=== PATIENT | male | born 2000 | race Caucasian/White ===

== ENCOUNTER 2024-03-22 11:53 | Emergency (ER) | payer BC, SELFPAY ==
[2024-03-22 12:20] VITALS: BP 147/127
--- NOTE | 2024-03-22 13:02 | ED.GENMED ---
History of Present Illness
General
Chief Complaint: Abdominal Symptoms
Time Seen by Provider: 03/22/24 12:35
Travel History
Have you had any contact with someone who has COVID-19?: No
Do you have any symptoms of coronavirus? Fever > 100 degrees, chills, cough, shortness of breath, sore throat, loss of taste or smell, muscle aches, or headache?: No
History of Present Illness
History of Present Illness:
23-year-old male no past medical history presenting with multiple episodes of nausea, vomiting, diarrhea starting around 5 AM this morning. Patient estimates that he has vomited 50-60 times today. Patient reports epigastric pain that radiates up
into his chest. Patient states that symptoms started after he had a chicken sandwich last night. Patient states that for the people had same chicken sandwich with no symptoms. Patient denies fever, chills, or urinary symptoms. Patient states
that he drink 8 beers 2 nights ago and 1 beer yesterday.
Phy Exam
Physical Exam
Physical Exam:
General: Alert, no acute distress
Head: NCAT
Eyes: clear conjunctiva
Neck: supple
Cardiac: regular rate and rhythm, no murmur
Lungs: clear to auscultation bilaterally. No wheezes, rales, or rhonchi. Speaking full unlabored sentences. No respiratory distress.
Abdomen: soft, nondistended epigastric tenderness to palpation. No rebound or guarding.
MSK: no lower extremity edema bilaterally. No deformity
Skin: warm, dry
Neuro: Alert and oriented x3. no focal deficits
Course
Orders/Labs/Results
Orders:
Orders
03/22/24 12:50
0.9% Sodium Chloride 1000 ml [Nss] 1,000 ml IV BOLUS
Famotidine [Pepcid] 20 mg IV NOW STA
Ondansetron Injectable [Zofran] 4 mg IV NOW STA
03/22/24 13:06
Basic Metabolic Panel Urgent
Complete Blood Count/With Diff Urgent
LFT [Vwdfe-Zxsk-Gvqpyty] Urgent
Lipase Urgent
PTT Urgent
Prothrombin Time Urgent
Abnormal Lab Results
03/22/24
13:06
WBC 16.6 H 10^3/uL
(4.8-10.8)
MPV 11.0 H fL
(7.4-10.4)
Abs Immat Gran (auto) 0.1 H 10^3/uL
(0-0.05)
Absolute Neuts (auto) 14.9 H 10^3/uL
(1.4-6.5)
Absolute Lymphs (auto) 0.4 L 10^3/uL
(1.2-3.4)
Absolute Monos (auto) 1.2 H 10^3/uL
(0.1-0.6)
Immature Gran % 0.7 H %
(0-0.5)
Neutrophils % 89.7 H %
(42.2-75.2)
Lymphocytes % 2.1 L %
(20.5-51.1)
Carbon Dioxide 20 L mmol/L
(22-30)
BUN 25 H mg/dl
(9-20)
Glucose 164 H mg/dl
(70-99)
Calcium 11.3 H mg/dl
(8.4-10.2)
Total Bilirubin 1.8 H mg/dl
(0.2-1.3)
Total Protein 9.5 H g/dl
(6.3-8.2)
Albumin 5.9 H g/dl
(3.5-5.0)
03/22/24 13:06
03/22/24 13:06
Vital Signs
Initial and Last Documented VS:
Initial Vital Signs
Temp Pulse Resp BP Pulse Ox
98.0 F 80 22 147/127 96
03/22/24 12:20 03/22/24 12:20 03/22/24 12:20 03/22/24 12:20 03/22/24 12:20
Last Documented Vital Signs
Temp Pulse Resp BP Pulse Ox
98.0 F 82 18 140/88 96
03/22/24 12:20 03/22/24 13:14 03/22/24 13:14 03/22/24 13:14 03/22/24 13:14
MDM/Problems Addressed
MDM/Problems Addressed:
Patient presents to the Emergency Department with ____nausea, vomiting, diarrhea
Number and Complexity of Problems Addressed at the Encounter
� Chronic conditions affecting care: GERD
� Acute Exacerbation and/or Progression of Chronic Illness:
� Differential Diagnosis includes: Gastroenteritis, gastritis, pancreatitis, cholecystitis
Amount and/or Complexity of Data to be Reviewed and Analyzed
� I performed an independent evaluation of and my interpretation is:
EKG:
CT:
Xrays:
Laboratory Studies: WBC 16.6 likely reactive from vomiting. Electrolytes within normal limits. LFTs within normal limits. Lipase within normal limits.
Other:
� Review of other/old records reveals:
� Clinical information was obtained by an independent historian:
� Prescriptions/Medications Considered but not given:
� Further testing considered but not performed:
Risk of Complications and/or Morbidity or Mortality of Patient Management
� Social Determinants of health affecting care:
� Discussion with other providers (PCP, Hospitalists, Consultants, etc):
� Escalation of care including admission/observation vs risk of discharge considered: 23-year-old male presenting with epigastric pain, nausea, multiple episodes of nonbloody vomiting and diarrhea starting at 5 AM this morning. Abdomen soft
nondistended nontender. Patient given 2 L of fluids, Pepcid with improvement in epigastric pain. No episodes of vomiting or diarrhea in ER. On reevaluation patient states he feels much better. Abdomen soft nondistended nontender. Vital stable.
Suspect gastroenteritis. 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 Will discharge with GI follow-up
*Critical Care Note
Total Time (30-74mins, 75-104mins- exclusive of procedures): Not Applicable
ED Attending Note
-
Portions of this chart may have been created with voice recognition software.� Occasional wrong word or��sound alike� substitutions may have occurred due to the inherent limitations of voice recognition software.
Discharge Plan
Departure
Patient Disposition: Home (Routine Discharge)
Date of Disposition: 03/22/24
Time of Disposition: 14:50
Patient with high blood pressure during this ER visit?: Yes
Discharge Problem:
Gastroenteritis
Instructions: Viral gastroenteritis in adults, BLOOD PRESSURE
Prescriptions:
New
ondansetron 8 mg tablet,disintegrating
8 mg PO Q8H PRN (Reason: nausea, vomiting) 4 Days Qty: 12 0RF
Referrals:
UNKNOWN - PT DOES,NOT KNOW [Family Provider] -
Activity Restrictions/Additional Instructions:
Follow-up with primary care doctor in 1 to 2 days. Follow-up with gastroenterology as needed
Take Zofran every 6-8 hours as needed for nausea/vomiting
Drink water/Pedialyte/Gatorade, stay hydrated
Return to the emergency department for fever or new/worsening symptoms
Interventions
Interventions:
*Risk Screen - Suicide Last Done: 03/22/24 12:24
*General Assessment Last Done: 03/22/24 12:24
*Neglect/Abuse Screening Last Done: 03/22/24 12:24
ED- Fall Risk Assessment Last Done: 03/22/24 12:30
*Nursing Disposition Last Done: 03/22/24 15:05
OV-Prkkaf-Izjbmvncix Assessment Last Done: 03/22/24 12:30
Discharge Date and Time
Discharge Date/Time: 03/22/24 15:40
Print Language: GUINEAN
[2024-03-22] MEDS: PEPCID 20 MG IV (13:06)
[2024-03-22] MEDS: NSS 1000 IV (13:06)
[2024-03-22] MEDS: ZOFRAN 4 MG IV (13:06)
[2024-03-22 13:14] VITALS: BP 140/88
[2024-03-22 13:25] LABS: % Basophils 0.3 % (0-2); % Eosinophils 0.2 % (0-6); % Immature Granulocytes 0.7 % (0-0.5); % Lymphocytes 2.1 % (20.5-51.1); % Neutrophils 89.7 % (42.2-75.2); Absolute Basophils 0.1 10^3/uL (0-0.2); Absolute Immature Granulocytes 0.1 10^3/uL (0-0.05); Absolute Lymphocytes 0.4 10^3/uL (1.2-3.4); Absolute Monocytes 1.2 10^3/uL (0.1-0.6); Absolute Neutrophils 14.9 10^3/uL (1.4-6.5); Hematocrit 45.2 % (39.0-52.0); Hemoglobin 15.7 g/dL (13.0-18.0); Mean Corp Hgb Conc. 34.7 g/dL (33.0-37.0); Mean Corpuscular Hgb 27.9 pg (27.0-31.0); Mean Corpuscular Volume 80.3 fL (80.0-94.0); Nucleated Red Blood Cells % 0 % (-); Platelet Count 269 10^3/uL (130-400); Red Blood Cell Count 5.63 10^6/uL (4.70-6.10); Red Cell Dist. Width 11.8 % (11.5-14.5); White Blood Cell Count 16.6 10^3/uL (4.8-10.8)
[2024-03-22 13:29] LABS: ALT (SGPT) 33 U/L (0-50); AST (SGOT) 38 U/L (17-59); Albumin 5.9 g/dl (3.5-5.0); Alkaline Phosphatase 93 U/L (38-126); Blood Urea Nitrogen 25 mg/dl (9-20); Calcium 11.3 mg/dl (8.4-10.2); Carbon Dioxide 20 mmol/L (22-30); Chloride 103 mmol/L (98-107); Direct Bilirubin 0.4 mg/dl (0.0-0.4); Glucose 164 mg/dl (70-99); Lipase 109 U/L (23-300); Potassium 4.7 mmol/L (3.5-5.1); Sodium 140 mmol/L (135-145); Total Bilirubin 1.8 mg/dl (0.2-1.3); Total Protein 9.5 g/dl (6.3-8.2); eGFR > 60.00
[2024-03-22 13:48] LABS: INR 1.09; PT 13.9 Sec (11.4-14.6)
[2024-03-22 13:49] LABS: APTT 26.9 Sec (23.4-35.0)
== END 2024-03-22 15:40 | disposition home or self-care (01) ==
LOC: EMR 11:53
PROVIDERS: EMERGENCY PHYSICIAN Emergency Medicine
DX: K52.9 Noninfective gastroenteritis and colitis, unspecified (principal); K21.9 Gastro-esophageal reflux disease without esophagitis; R03.0 Elevated blood-pressure reading, without diagnosis of hypertension
CPT/HCPCS: 99284; 96374; 96375; 96361; 80048; 80076; 83690; 85025; 85610; 85730